=== PATIENT | male | born 1970 | race Caucasian/White ===

== ENCOUNTER 2024-12-28 14:18 | Emergency (ER) | payer BC ==
[~2024-12-28] VITALS: Ht 167.6 cm; Wt 70.0 kg
[2024-12-28 14:41] VITALS: O2SAT 99
[2024-12-28 15:14] LABS: BASOPHILS % 1.3 % (0.0-2.0); EOSINOPHILS % 7.9 % (0.0-5.0); HEMOGLOBIN. 13.4 g/dL (14.0-18.0); LYMPHOCYTES % 38.5 % (20.0-50.0); MEAN CORPUSCULAR HEMOGLOBIN 33.2 pg (28.0-32.0); MEAN CORPUSCULAR HGB CONC 33.6 g/dL (31.0-37.0); MEAN CORPUSCULAR VOLUME 98.7 fL (80.0-94.0); MONOCYTES % 5.7 % (2.0-8.0); NEUTROPHILS % 46.6 % (40.0-76.0); PLATELET 263 x1000/uL (130-400); RED BLOOD CELL COUNT 4.05 mill/uL (4.7-6.1); RED CELL DISTRIBUTION WIDTH 14.8 % (11.6-14.6); WHITE BLOOD COUNT 6.7 x1000/uL (4.5-11.0)
[2024-12-28 15:21] LABS: CHLORIDE 105 mEq/L (98-107); POTASSIUM 3.5 mEq/L (3.5-5.1); SODIUM 142 mEq/L (136-145)
[2024-12-28 15:22] LABS: CARBON DIOXIDE 25 mEq/L (21-32)
[2024-12-28 15:23] LABS: CALCIUM 9.2 mg/dL (8.7-10.4)
[2024-12-28 15:25] LABS: PROTHROMBIN TIME 10.4 sec (9.6-11.0)
[2024-12-28 15:27] LABS: CREATININE 0.6 mg/dL (0.6-1.3); GLUCOSE 102 mg/dL (70-105)
[2024-12-28 15:28] LABS: UREA NITROGEN BLOOD 5 mg/dL (9-23)
[2024-12-28 15:29] LABS: ALANINE AMINOTRANSFERASE 20 IU/L (10-49); ALBUMIN 4.3 g/dL (3.2-4.8); ASPARTATE AMINOTRANSFERASE 31 IU/L (<34)
[2024-12-28 15:30] LABS: BILIRUBIN DIRECT < 0.1 mg/dL (<=3.0); BILIRUBIN TOTAL 0.3 mg/dL (0.1-1.0); PROTEIN TOTAL 7.7 g/dL (6.0-8.3)
[2024-12-28 15:33] LABS: TROPONIN I HIGH SENSITIVITY < 4 ng/L (3.0-53)
[2024-12-28] MEDS: AZITHROMYCIN 500 MG TABLET PO ONE (18:00)
[2024-12-28] MEDS: AMOXICILLIN/POTASSIUM CLAVULANATE 875/125MG TAB PO ONE (19:28)
[2024-12-28] MEDS ORDERED: DOXY150T9 MT (19:34)
[2024-12-28] MEDS ORDERED: AMOX1TAB16 MT (19:34)
[2024-12-28] MEDS: CHLORDIAZEPOXIDE 25MG CAPSULE PO ONE (19:44)
[2024-12-28 19:50] VITALS: BP 132/87; PULSE 73; RESP 14; TEMP 36.7; O2SAT 98
== END 2024-12-28 19:56 | disposition home or self-care (01) ==
LOC: ER 14:18
DX: J18.9 Pneumonia, unspecified organism (principal); I49.3 Ventricular premature depolarization; M50.321 Other cervical disc degeneration at C4-C5 level
CPT/HCPCS: 36415; 71045; 80048; 80076; 83880; 84484; 85025; 93005; 99285